=== PATIENT | female | born 1955 | race Native Hawaiian/Other Pacific Islander ===

== ENCOUNTER 2018-10-24 13:30 | Observation (INO) | payer BC ==
[~2018-10-24] VITALS: Ht 160 cm; Wt 67.6 kg
[2018-10-24 14:07] LABS: PLATELET COUNT 297 K/uL (152-353)
[2018-10-24 14:18] LABS: POTASSIUM 4.1 mmol/L (3.6-5.2)
[2018-10-24 15:27] VITALS: BP 180/86; TEMP 97.7; Ht 160 cm; Wt 67.6 kg
[2018-10-24 16:07] VITALS: BP 145/89; TEMP 97.8
[2018-10-24] MEDS ORDERED: ALBU0.0813 INH (16:47)
[2018-10-24 19:52] VITALS: BP 167/81; TEMP 97.8
[2018-10-25] VITALS: BP 184/80; TEMP 98.4
[2018-10-25 03:55] VITALS: BP 181/96; TEMP 97.7
[2018-10-25 08:00] VITALS: BP 166/92; TEMP 97.6
[2018-10-25 08:29] LABS: PLATELET COUNT 244 K/uL (152-353)
[2018-10-25 08:40] LABS: POTASSIUM 4.2 mmol/L (3.6-5.2)
[2018-10-25 12:09] VITALS: BP 140/77; TEMP 97.6
[2018-10-25 16:05] VITALS: BP 164/93; TEMP 97.7
[2018-10-25 19:49] VITALS: BP 140/78; TEMP 98.2
[2018-10-26] VITALS: BP 134/79; TEMP 98.4
[2018-10-26 04:00] VITALS: BP 111/71; TEMP 97.7
[2018-10-26 08:00] VITALS: BP 95/57; TEMP 97.6
[2018-10-26 08:21] LABS: PLATELET COUNT 254 K/uL (152-353)
[2018-10-26 08:38] LABS: POTASSIUM 4.7 mmol/L (3.6-5.2)
[2018-10-26 11:21] VITALS: BP 129/87; TEMP 97.2
== END 2018-10-26 17:40 | disposition home or self-care (01) ==
LOC: MED/SURG 13:30
PROVIDERS: ADMIT Family Medicine
DX: J18.9 Pneumonia, unspecified organism (principal); J44.1 Chronic obstructive pulmonary disease with (acute) exacerbation; J09.X2 Influenza due to identified novel influenza A virus with other respiratory manifestations
CPT/HCPCS: 36600; 80053; 81000; 82805; 83605; 83735; 83880; 84100; 85027; 87040; 93005; 94640; 94664; 94760; 99220; G0378; G0379; J0456; J0696; J2930; J3475

== ENCOUNTER 2018-11-27 01:16 | Observation (INO) | payer BC ==
[~2018-11-27] VITALS: Ht 160 cm; Wt 70.4 kg
[2018-11-27] VITALS (12 sets, daily range): BP systolic 109–283; BP diastolic 62–158; TEMP 97.2–99; Ht 160 cm; Wt 70.4 kg
[~2018-11-27 01:16] MED LIST: ALBU0.0813 INH
[2018-11-27 01:54] LABS: PLATELET COUNT 406 K/uL (152-353)
[2018-11-27 01:59] LABS: POTASSIUM 4.3 mmol/L (3.6-5.2)
[2018-11-28] VITALS: BP 108/79; TEMP 98.2
[2018-11-28 03:49] VITALS: BP 106/61; TEMP 97.5
[2018-11-28 05:37] LABS: PLATELET COUNT 329 K/uL (152-353)
[2018-11-28 05:52] LABS: POTASSIUM 4.1 mmol/L (3.6-5.2)
[2018-11-28 08:00] VITALS: BP 121/64; TEMP 98.5
[2018-11-28 12:00] VITALS: BP 112/56; TEMP 97.6
[2018-11-28 16:00] VITALS: BP 123/68; TEMP 97.7
== END 2018-11-28 18:35 | disposition home or self-care (01) ==
LOC: ED 01:16 → MED/SURG 03:24
PROVIDERS: Internal Medicine; ADMIT Family Medicine
DX: J44.1 Chronic obstructive pulmonary disease with (acute) exacerbation (principal); R06.02 Shortness of breath
CPT/HCPCS: 36600; 80053; 82805; 83036; 83735; 83880; 84100; 85027; 87502; 94640; 94664; 94760; 96365; 96375; 99220; 99284; G0378; J1956; J2405; J2930